=== PATIENT | female | born 1955 | race Caucasian/White ===

== ENCOUNTER 2025-02-17 16:20 | Outpatient (REF) | payer MEDICAID, SELFPAY ==
--- NOTE | ~2025-02-17 | US_ITS ---
CLINICAL HISTORY: right leg swelling, r o dvt Venous duplex ultrasound right lower extremity Comparison: None Findings: The visualized deep veins are fully compressible with normal Doppler color flow and spectral tracings. No popliteal cyst. Right inguinal lymph nodes measuring up to 3.2 x 1 x 2.4 cm in size. IMPRESSION: 1. Negative for right lower extremity deep vein thrombosis. This document has been electronically signed by: Phoebe Wheeler MD on 02/17/2025 18:00:00
--- OUTSIDE RECORDS SUMMARY | 2025-02-17 19:02 | XMS_ITS | Encounter Summary ---
Author Organization [employer] Address 75 [facility] 7t [place] [address] Care Team Providers Care Automobile Club Travel Counselor Name Role Phone Shilpa Carlos MD Primary Care Provider [phone] [phone] Reason for Visit * Reason Onset Date Comments Nurse Triage 02/17/2025 Encounter Details Date Type Department Care Team (Late st Contact Info) Description 02/17/2025 Telephone [facility] [address] [place] [address] Shilpa Carlos MD [address] [place] [address] Nurse Triage Social History Tobacco Use Types Packs/Day Years Used Date Smoking Tobacco: Former Cigarettes Q uit: 1993 Passive Smoke Exposure: Past Smokeless Tobacco: Never Depression Answer Date Recorded Patient Health Questionnaire-9 Score 0 11/16/2022 Depression Answer Date Recorded Patient Health Questionnaire-2 Score 0 11/16/2022 Comments Unknown Sex and Gender Information Value Date Recorded Sex Assigned at Female 09/11/2022 10:21 AM EDT Legal Sex Female 10:21 AM EDT Gender Identity Female 11/16/2022 11:14 AM EST Sexual Orientation Don't know 11/16/2022 11 :14 AM EST documented as of this encounter Miscellaneous Notes * Telephone Encounter - Mallory Chung RN - 02/17/2025 11:18 AM EDT Call returned to Wandy Irene to triage below. Reports having widespread rash x 2 weeks. Per pt having pus filled spots and others are red. No known fever. No MARKO sx. Denies any ST. Pt denies any changes to lotions, soaps or detergents. Pt has used topical hydrocortisone with no relief., may make rash worse. Pt advised of disposition, agrees to seek [facility] as no sick on site with [facility]. Given Uber hea lth to [facility]. Advised of PT1 number to set up for upcoming appt with PCP in a couple of weeks. Will send PT-1 request to [facility]. Protocol Used: Rash or Redness - Widespread (Adult) Protocol-Based Disposition: See in Office or Video Visit Today Video visit offer not recorded Positive Triage Question: * Severe itching * All higher-acuity triage questions were negative Care Advice Discussed: * Reassurance and Education - Widespread Rash * Reasons To Call Back - You become worse * Telephone Encounter - Isabella Tobias - 02/17/2025 11:02 AM EDT Symptom: Skin black coloration, hand skin lumps/pus, Rash all over the body - Caller Reports Outcome: Schedule a same-day appointment or talk to a nurse or provider today Reason: Caller denied all higher acuity questions The caller accepted this outcome. Pt would need an Uber documented in this encounter Plan of Treatment Upcoming Encounters Date Type Department Care Team (Late st Contact Info) Description 02/19/2025 2:00 PM EDT Office Visit [facility] [address] [place] [address] 03/03/2025 3:15 PM EDT Office Visit [facility] MED & PEDS [address] [place] [address] Shilpa Carlos MD [address] [place] [address] documented as of this encounter Visit Diagnoses Not on filedocumented in this encounter Additional Health Concerns Assessment Noted Time PHQ-9 Depression Total Score: 0 11/16/19 23 12:10 PM EST documented as of this encounter Care Teams Automobile Club Travel Counselor Relationship Specialty Start Date End Date Shilpa Carlos MD [address] [place] [phone] PCP - General Internal Medicine 11/12/18 documented as of this encounter
--- OUTSIDE RECORDS SUMMARY | 2025-02-17 19:02 | XMS_ITS | Encounter Summary ---
Author Organization [employer] Address 75 [facility] 7t [place] [address] Care Team Providers Care Custom Miller Name Role Phone Shilpa Carlos MD Primary Care Provider [phone] Reason for Visit * Reason Comments Med Refill Encounter Details Date Type Department Care Team (Late Contact Info) Description 04/18/2024 Refill [facility] MEDICINE [address] [place] [phone] Shilpa Carlos MD [address] [place], [place] [phone] Hypercholesterolemia Social History Tobacco Use Types Packs/Day Years Used Date Smoking Tobacco: Former Cigarettes Q uit: 1992 Passive Smoke Exposure: Past Smokeless Tobacco: Never [...] AM EST documented as of this encounter Plan of Treatment Upcoming Encounters Date Type Department Care Team (Late Contact Info) Description 02/19/2025 2:00 PM EDT Office Visit [facility] [address] [place], [place] [phone] 03/03/2025 3:15 PM EDT Office Visit [facility] MED & PEDS [address] [place], [place] [phone] Shilpa Carlos MD [address] [place] [address] documented as of this encounter Visit Diagnoses Diagnosis Hypercholesterolemia Pure hypercholesterolemia documented in this encounter Additional Health Concerns Assessment Noted Time PHQ-9 Depression Total Score: 0 11/16/19 23 12:10 PM EST documented as of this encounter Care Teams Custom Miller Relationship Specialty Start Date End Date Shilpa Carlos MD [address] [place] [address] PCP - General Internal Medicine 11/12/18 documented as of this encounter
--- OUTSIDE RECORDS SUMMARY | 2025-02-17 19:02 | XMS_ITS | Encounter Summary ---
Author Organization [employer] Address 75 [facility] 7t [place] [address] Care Team Providers Care Risk Management Professional Name Role Phone Shilpa Carlos MD Primary Care Provider [phone] Reason for Visit * Reason Onset Date Comments Med Refill 02/17/2025 Encounter Details Date Type Department Care Team ([facility] st Contact Info) Description 02/17/2025 Refill [facility] MED & PEDS [address] [place] [address] Shilpa Carlos MD [address] [place] [address] Social History Tobacco Use Types Packs/Day Years [...] encounter Miscellaneous Notes * Telephone Encounter - Isabella Tobias - 02/17/2025 11:05 AM EDT TC from pt requesting medication refill. Medications needing refill : empagliflozin (Jardiance) 25 MG metFORMIN XR (Glucophage-XR) 500 MG 24 hr tablet omeprazole (PriLOSEC) [address] capsule To be sent to: [id number] - [place], [place] - [address] Pt informs has no medication left documented in this encounter Plan of Treatment Upcoming Encounters Date Type Department Care Team (Late st Contact Info) Description 02/19/2025 2:00 PM EDT Office Visit [facility] [address] [place], [place] [phone] 03/03/2025 3:15 PM EDT Office Visit [facility] MED & PEDS [address] [place], [place] [phone] Shilpa Carlos MD [address] [place], [place] [phone] documented as of this encounter Visit Diagnoses Not on filedocumented in this encounter Additional Health Concerns Assessment Noted Time PHQ-9 Depression Total Score: 0 11/16/19 23 12:10 PM EST documented as of this encounter Care Teams Risk Management Professional Relationship Specialty Start Date End Date Shilpa Carlos MD [address] [place], [place] [phone] PCP - General Internal Medicine 11/12/18 documented as of this encounter
--- OUTSIDE RECORDS SUMMARY | 2025-02-17 19:02 | XMS_ITS | Encounter Summary ---
Author Organization [employer] Address 75 [facility] 7t [place] [address] Care Team Providers Care Motorized Squad Captain Name Role Phone Shilpa Carlos MD Primary Care Provider [phone] Reason for Visit * Reason Onset Date Comments Med Refill 10/23/2024 Encounter Details Date Type Department Care Team ([facility] st Contact Info) Description 10/23/2024 Telephone [facility] [address] [place] [address] Shilpa Carlos MD [address] [place] [phone] Med Refill Social History Tobacco Use Types Packs/Day Years [...] encounter Miscellaneous Notes * Telephone Encounter - Janie Colon - 10/23/2024 3:09 PM EST TC from pt requesting medication refill. Medications needing refill : omeprazole (PriLOSEC) [address] capsule metFORMIN XR (Glucophage-XR) 500 MG 24 hr tablet To be sent to: [id number] documented in this encounter Plan of Treatment Upcoming Encounters Date Type Department Care Team (Late st Contact Info) Description 02/19/2025 2:00 PM EDT Office Visit [facility] [address] [place] [address] 03/03/2025 3:15 PM EDT Office Visit [facility] PEDS [address] [place] [address] Shilpa Carlos MD [address] [place] [address] documented as of this encounter Visit Diagnoses Not on filedocumented in this encounter Additional Health Concerns Assessment Noted Time PHQ-9 Depression Total Score: 0 11/16/19 23 12:10 PM EST documented as of this encounter Care Teams Motorized Squad Captain Relationship Specialty Start Date End Date Shilpa Carlos MD [address] [place] [address] PCP - General Internal Medicine 11/12/18 documented as of this encounter
--- OUTSIDE RECORDS SUMMARY | 2025-02-17 19:02 | XMS_ITS | Encounter Summary ---
Author Organization [employer] Address 75 [facility] 7t [place] [address] Care Team Providers Care Bun Icer Name Role Phone Shilpa Carlos MD Primary Care Provider [phone] Reason for Referral * Consultation (Routine) - Authorized Specialty Diagnoses / Procedures Referred By Beth rashid Referred To Contact Family Medicine Diagnoses Rash Danika Valerio MD [address] [place] [address] Phone: tel: fax: Referral ID Status Reason Start Date Expiration Date Visits Requested Visits Authorized [id number] Authorized Specialty Services Required 02/17/2025 02/17/2026 1 1 * Imaging (STAT) - Authorized Specialty Diagnoses / Procedures Referred By Beth rashid Referred To Contact Cardiology Diagnoses Right leg swelling Procedures Vascular US lower extremity venous duplex right Danika Valerio MD [address] [place] [address] Phone: tel: fax: [address] Phone: tel: fax: Referral ID Status Reason Start Date Expiration Date Visits Requested Visits Authorized [id number] Authorized Perform Procedure 02/17/2025 02/17/2026 1 1 Reason for Visit * Reason Comments Rash Encounter Details Date Type Department Care Team (Late st Contact Info) Description 02/17/2025 3:20 PM EDT Office Visit [facility] [address] [place] [address] Danika Valerio MD [address] [place], [place] [phone] Rash (Primary Dx); Right leg swelling; Benign essential hypertension; Type 2 diabetes mellitus with hyperglycemia, without long-term current use of insulin ([facility]); Gastroesophageal reflux disease, unspecified whether esophagitis present Social History Tobacco Use Types Packs/Day Years [...] AM EST documented as of this encounter Last Filed Vital Signs Vital Sign Reading Time Taken Comments Blood Pressure 147/80 02/17/2025 2:39 PM EDT Pulse 78 02/17/2025 2:39 PM EDT Temperature 36.7 ??C (98.1 ??F) 02/17/2025 2:39 PM ED T Respiratory Rate 18 02/17/2025 2:39 PM EDT Oxygen Saturation 98% 02/17/2025 2:39 PM EDT Inhaled Oxygen Concentration - - Weight 91.6 kg (202 lb) 02/17/2025 2:39 PM EDT Height - - Body Mass Index 30.71 01/15/2023 1:47 PM EST documented in this encounter Progress Notes * Augusto Nichols - 02/17/2025 3:20 PM EDT Images from the original note were not included. Subjective Patient ID: Wandy Irene is a 69 y.o. female with past medical history of hypertension, GERD and type 2 diabetes who presents to walk in clinic for Rash. Pt has not been seen at clinic since 2022. Per triage: Reports having widespread rash x 2 weeks. Per pt having pus filled spots and others arered. No known fever. No MARKO sx. Denies any ST. Pt denies any changes to lotions, soaps or detergents. Pt has used topical hydrocortisone with no relief., may make rash worse. Pt reports 2 or 3 weeks of this rash that is seemingly concentrated to her hands, but has some other minimal spots of redness all over her body. Denies any new medications. She reports burning and tingling sensations. Pt notes that occasionally when she touches the crusting there is some purulent discharge. She reports swelling to her right leg for many months. Denies any evaluation for the swelling or interventions to evaluate for blood clots. Pt reports she needs to get her medications refilled and has been out of some of them. She notes she has had difficulty getting back in to care. Review of Systems Constitutional: Negative for fever and unexpected weight change. Respiratory: Negative for shortness of breath. Cardiovascular: Negative for chest pain. Gastrointestinal: Negative for abdominal pain. Genitourinary: Negative for difficulty urinating. Skin: Positive for color change and rash. Objective Visit Vitals BP (!) 147/80 (BP Location: Left arm, Patient Position: Sitting, BP Cuff Size: Adult) Pulse 78 Temp 98.1 ??F (36.7 ??C) (Temporal) Resp 18 Body mass index is 30.71 kg/m??. Physical Exam Constitutional: Appearance: Normal appearance. Cardiovascular: Rate and Rhythm: Normal rate and regular rhythm. Heart sounds: Normal heart sounds. Pulmonary: Effort: Pulmonary effort is normal. Breath sounds: Normal breath sounds. Musculoskeletal: Cervical back: Normal range of motion. Right lower leg: Swelling (erythematous, warmth) present. Left lower leg: Normal. Comments: See image. Skin: General: Skin is warm. Findings: Rash and wound present. Comments: Bilateral hands with skin breakdown, erythema, and yellowish crusting. See image. Neurological: General: No focal deficit present. Mental Status: She is alert. Psychiatric: Behavior: Behavior normal. Problem List Items Addressed This Visit Rash - Primary Bilateral hands with skin breakdown, erythema, and yellowish crusting. See image. Occasional purulent discharge. -prescribed doxycycline (Vibramycin) 100 MG -prescribed mineral oil-hydrophilic petrolatum (Aquaphor) ointment -prescribed predniSONE (Deltasone) 20 MG taper -referred to Dermatology -follow-up on with Danika Valerio Relevant Medications doxycycline (Vibramycin) 100 MG capsule Other Relevant Orders Referral to [facility] Derm Skin Adult Right leg swelling Localized swelling, redness and warmth to right lower leg x months. -ordered STAT R doppler US -follow-up on with Danika Valerio Relevant Orders Vascular US lower extremity venous duplex right Benign essential hypertension BP slightly elevated, likely due to medication non-adherence. -refilled carvedilol (Coreg) 3.125 MG and lisinopril 10 MG Relevant Medications carvedilol (Coreg) 3.125 MG tablet lisinopril 10 MG tablet Type 2 diabetes mellitus with hyperglycemia, without long-term current use of insulin ([facility]) Not been seen in the clinic since 2022. -refilled empagliflozin (Jardiance) 25 MG and metFORMIN XR (Glucophage-XR) 500 MG 24 hr Relevant Medications predniSONE (Deltasone) 20 MG tablet mineral oil-hydrophilic petrolatum (Aquaphor) ointment empagliflozin (Jardiance) 25 MG metFORMIN XR (Glucophage-XR) 500 MG 24 hr tablet GERD (gastroesophageal reflux disease) -refilled omeprazole (PriLOSEC) [address] Relevant Medications omeprazole (PriLOSEC) [address] capsule -No evidence of acute disease process. Suspect cellulitis, versus diabetic blisters, fungal infection, ulcers. Also suspect possible LLE DVT. Symptoms moderate. -Will treat with steroids, hydrating ointment, abx and ordered STAT US. -ER precautions discussed. -Seek medical attention for worsening symptoms. 02/17/25 6:22 PM IMPRESSION: 1. Negative for right lower extremity deep vein thrombosis. I, Augusto Nichols, am serving as a scribe to document services personally performed by Dr. Avila, based on the patient's response to questions by provider and providers statements to me. documented in this encounter Miscellaneous Notes * Assessment & Plan Note - Augusto Nichols - 02/17/2025 3:04 PM EDTAssociated Problem(s): Type 2 diabetes mellitus with hyperglycemia, without long-term current use of insulin ([facility]) Not been seen in the clinic since 2022. -refilled empagliflozin (Jardiance) 25 MG and metFORMIN XR (Glucophage-XR) 500 MG 24 hr * Assessment & Plan Note - Augusto Nichols - 02/17/2025 3:03 PM EDTAssociated Problem(s): GERD (gastroesophageal reflux disease) -refilled omeprazole (PriLOSEC) [address] * Assessment & Plan Note - Augusto Nichols - 02/17/2025 3:02 PM EDTAssociated Problem(s): Benign essential hypertension BP slightly elevated, likely due to medication non-adherence. -refilled carvedilol (Coreg) 3.125 MG and lisinopril 10 MG * Assessment & Plan Note - Augusto Nichols - 02/17/2025 2:58 PM EDTAssociated Problem(s): Right leg swelling Localized swelling, redness and warmth to right lower leg x months. -ordered STAT R doppler US -follow-up on with Danika Valerio * Assessment & Plan Note - Augusto Nichols - 02/17/2025 2:56 PM EDTAssociated Problem(s): Rash Bilateral hands with skin breakdown, erythema, and yellowish crusting. See image. Occasional purulent discharge. -prescribed doxycycline (Vibramycin) 100 MG -prescribed mineral oil-hydrophilic petrolatum (Aquaphor) ointment -prescribed predniSONE (Deltasone) 20 MG taper -referred to Dermatology -follow-up on with Danika Teodoro documented in this encounter Plan of Treatment Upcoming Encounters Date Type Department Care Team (Late st Contact Info) Description 02/19/2025 2:00 PM EDT Office Visit [facility] [address] [place] [address] 03/03/2025 3:15 PM EDT Office Visit [facility] [address] [place] [address] Shilpa Carlos MD [address] [place] [address] Scheduled Referrals Name Type Priority Associated Diagnoses Orde r Schedule Referral to [facility] Derm Skin Adult Outpatient Referral Routine Rash Expected: 02/17/2025 (Approximate), Expires: 02/17/2026 documented as of this encounter Visit Diagnoses Diagnosis Rash- Primary Rash and other nonspecific skin eruption Right leg swelling Benign essential hypertension Essential hypertension, benign Type 2 diabetes mellitus with hyperglycemia, without long-term current use of insulin ([facility]) Gastroesophageal reflux disease, unspecified whether esophagitis present documented in this encounter Additional Health Concerns Assessment Noted Time PHQ-9 Depression Total Score: 0 11/16/19 23 12:10 PM EST documented as of this encounter Care Teams Bun Icer Relationship Specialty Start Date End Date Shilpa Carlos MD [address] [place] [address] PCP - General Internal Medicine 11/12/18 documented as of this encounter
--- OUTSIDE RECORDS SUMMARY | 2025-02-17 19:02 | XMS_ITS | Encounter Summary ---
Author Organization [employer] Address 75 [facility] 7t [place] [address] Care Team Providers Care Spinneret Person Name Role Phone Shilpa Carlos MD Primary Care Provider [phone] Reason for Visit * Reason Comments Med Refill Encounter Details Date Type Department Care Team (Late Contact Info) Description 02/07/2025 Refill [facility] & PEDS [address] [place], [place] [phone] Lucho Veiira MD [address] [place] [address] Social History Tobacco Use Types Packs/Day Years [...] Description 02/19/2025 2:00 PM EDT Office Visit [facility] [address] [place] [phone] 03/03/2025 3:15 PM EDT Office Visit [facility] [address] [place] [address] Shilpa Carlos MD [address] [place] [address] documented as of this encounter Visit Diagnoses Not on filedocumented in this encounter Additional Health Concerns Assessment Noted Time PHQ-9 Depression Total Score: 0 11/16/19 23 12:10 PM EST documented as of this encounter Care Teams Spinneret Person Relationship Specialty Start Date End Date Shilpa Carlos MD [address] [place] [address] PCP - General Internal Medicine 11/12/18 documented as of this encounter
--- OUTSIDE RECORDS SUMMARY | 2025-02-17 19:02 | XMS_ITS | Encounter Summary ---
Author Organization [employer] Address 75 [facility] 7t [place] [address] Care Team Providers Care Digital Solution Architect Name Role Phone Shilpa Carlos MD Primary Care Provider [phone] Encounter Details Date Type Department Care Team (Late st Contact Info) Description 02/17/2025 Orders Only [facility] MEDICINE [address] [place] [phone] Danika Valerio MD [address] [place] [phone] Social History Tobacco Use Types Packs/Day Years [...] Description 02/19/2025 2:00 PM EDT Office Visit [facility] [address] [place], [place] [phone] 03/03/2025 3:15 PM EDT Office Visit [facility] PEDS [address] [place], [place] [phone] Shilpa Carlos MD [address] [place] [address] documented as of this encounter Procedures Procedure Name Priority Date/Time Associated Diagnosis Comments US VENOUS DUPLEX LE RT Routine 02/17/2025 6:00 PM EDT documented in this encounter Results * US VENOUS DUPLEX LE RT (02/17/2025 6:00 PM EDT) Anatomical Region Laterality Modality Abdomen Ultrasound 02/17/2025 6:00 PM EDT Narrative 02/17/2025 6:01 PM EDT ? [facility] ?[address] ?[place] [address] ? Ultrasound Report ? Signed ? Patient: TetoWandy R ?MR#: [id number] ?? [id number] ? : 1955 ?Acct:[id number] ? Age/Sex: 69 / F ?ADM Date: 02/17/25 ? Loc: HO.US ? Attending Dr: Danika Valerio MD ? Ordering Physician: Danika Valerio MD ?? Date of Service: 02/17/25 ?? Procedure(s): US venous duplex LE RT ?? Accession Number(s): [id number] ? cc: Shilpa Carlos MD; Danika Valerio MD ? CLINICAL HISTORY: right leg swelling, r o dvt ? Venous duplex ultrasound right lower extremity ? Comparison: None ? Findings: ?? The visualized deep veins are fully compressible with normal Doppler color ?? flow and spectral tracings. ?? No popliteal cyst. ?? Right inguinal lymph nodes measuring up to 3.2 x 1 x 2.4 cm in size. ? IMPRESSION: ?? 1. Negative for right lower extremity deep vein thrombosis. ? This document has been electronically signed by: Phoebe Wheeler MD on ?? 02/17/2025 18:00:00 ? Dictated By: ?Phoebe Wheeler MD ? Signed By: ?<Electronically signed by Phoebe Wheeler MD in OV> ? 02/17/25 1801 ? DD/ 1800 ? TD/TT: 02/17/25 1800 ? Grid Inspector: ? Procedure Note Justin, Carlos - 02/17/[address] [place] [address] Ultrasound Report Signed Patient: Wandy Irene RMR#: [id number] : 5Acct:[id number] Age/Sex: 69 / FADM Date: 02/17/25 Loc: HO.US Attending Dr: Danika Valerio MD Ordering Physician: Danika Valerio MD Date of Service: 02/17/25 Procedure(s): US venous duplex LE RT Accession Number(s): [id number] cc: Shilpa Carlos MD; Danika Valerio MD CLINICAL HISTORY: right leg swelling, r o dvt Venous duplex ultrasound right lower extremity Comparison: None Findings: The visualized deep veins are fully compressible with normal Doppler color flow and spectral tracings. No popliteal cyst. Right inguinal lymph nodes measuring up to 3.2 x 1 x 2.4 cm in size. IMPRESSION: 1. Negative for right lower extremity deep vein thrombosis. This document has been electronically signed by: Phoebe Wheeler MD on 02/17/2025 18:00:00 Dictated By: Phoebe Wheeler MD Signed By: <Electronically signed by Phoebe Wheeler MD in OV> 02/17/25 1801 DD/ 1800 TD/TT: 02/17/25 1800 Grid Inspector: us Danika Valerio MD IMG US PROCEDURES Final Re sult documented in this encounter Visit Diagnoses Not on filedocumented in this encounter Additional Health Concerns Assessment Noted Time PHQ-9 Depression Total Score: 0 11/16/19 23 12:10 PM EST documented as of this encounter Care Teams Digital Solution Architect Relationship Specialty Start Date End Date Shilpa Carlos MD [address] [place] [phone] PCP - General Internal Medicine 11/12/18 documented as of this encounter
--- OUTSIDE RECORDS SUMMARY | 2025-02-17 19:02 | XMS_ITS | Encounter Summary ---
Author Organization [employer] Address [address] [facility] 7t [place] [address] Care Team Providers Care Wafer Fabrication Operator Name Role Phone Shilpa Carlos MD Primary Care Provider [phone] Reason for Visit * Reason Comments Care Coordination CHW outreach for SDO H PT-1 - LVM Encounter Details Date Type Department Care Team (Latest Contact Info) Description 02/17/2025 Patient Outreach [facility] [address] [place] [address] Shilpa Carlos MD [address] [place] [phone] Care Coordination (CHW outreach for SDOH PT-1 - LVM ) Social History Tobacco Use Types Packs/Day Years [...] AM EST documented as of this encounter Progress Notes * Sharif Mckeon - 02/17/2025 12:00 PM EDT CHW Sahrif Mckeon, placed outbound call to patient for assistance with SDOH as a referral was placed by the provider. Patient had screened positive for the following SDOH insecurities. No answer atthis time. Patient's name and were not confirmed. CHW left detailed message and provided contact information requesting return call for assistance. Patient educated on extended clinic hours on Mondays through Wednesdays, and Walk-In Urgent Care Located in [facility]. Patient provided with after-hours line for [facility], , which offer night time triage service and option to transfer toon call provider if needed. documented in this encounter Plan of Treatment Upcoming Encounters Date Type Department Care Team ([facility] st Contact Info) Description 02/19/2025 2:00 PM EDT Office Visit [facility] [address] [place] [address] 03/03/2025 3:15 PM EDT Office Visit [facility] & PEDS [address] [place] [address] Shilpa Carlos MD [address] [place] [address] documented as of this encounter Visit Diagnoses Not on filedocumented in this encounter Additional Health Concerns Assessment Noted Time PHQ-9 Depression Total Score: 0 11/16/19 23 12:10 PM EST documented as of this encounter Care Teams Wafer Fabrication Operator Relationship Specialty Start Date End Date Shilpa Carlos MD [address] [place] [address] PCP - General Internal Medicine 11/12/18 documented as of this encounter
--- OUTSIDE RECORDS SUMMARY | 2025-02-17 19:02 | XMS_ITS | Encounter Summary ---
Author Organization [employer] Address [address] [facility] 7t [place] [address] Care Team Providers Care Telecommunicator Name Role Phone Shilpa Carlos MD Primary Care Provider [phone] Reason for Visit * Reason Comments Med Refill Encounter Details Date Type Department Care Team (Late Contact Info) Description 01/20/2025 Refill [facility] & PEDS [address] [place], [place] [phone] Lucho Vieira MD [address] [place] [address] Social History Tobacco Use Types Packs/Day Years [...] 2:00 PM EDT Office Visit [facility] [address] [place] [address] [phone] 03/03/2025 3:15 PM EDT Office Visit [facility] [address] [place] [address] Shilpa Carlos MD [address] [place] [address] documented as of this encounter Visit Diagnoses Not on filedocumented in this encounter Additional Health Concerns Assessment Noted Time PHQ-9 Depression Total Score: 0 11/16/19 23 12:10 PM EST documented as of this encounter Care Teams Telecommunicator Relationship Specialty Start Date End Date Shilpa Carlos MD [address] [place] [address] PCP - General Internal Medicine 11/12/18 documented as of this encounter
--- OUTSIDE RECORDS SUMMARY | 2025-02-17 19:02 | XMS_ITS | Encounter Summary ---
Author Organization [employer] Address 75 [facility] 7t [place] [address] Care Team Providers Care Customer Program Manager Name Role Phone Shilpa Carlos MD Primary Care Provider [phone] Reason for Visit * Reason Onset Date Comments PT-1 02/17/2025 Encounter Details Date Type Department Care Team ([facility] Contact Info) Description 02/17/2025 Telephone [facility] [address] [place], [place] [phone] Shilpa Carlos MD [address] [place] [address] PT-1 Social History Tobacco Use Types Packs/Day Years [...] Encounter - Mallory Chung RN - 02/17/2025 11:33 AM EDT Patient calling requesting PT1 Home Address verified: Y/N: Yes Provider name or facility name: Shilpa Carlos MD [facility] Facility Address: [address] [facility] [address] Escort needed: Y/N: No Do you have a wheelchair: Y/N: No ?? If yes- Manual or electric: N/A Visits: 2 x monthly documented in this encounter Plan of Treatment Upcoming Encounters Date Type Department Care Team ([facility] Contact Info) Description 02/19/2025 2:00 PM EDT Office Visit [facility] [address] [place] [address] 03/03/2025 3:15 PM EDT Office Visit [facility] [address] [place] [address] Shilpa Carlos MD [address] [place] [address] documented as of this encounter Visit Diagnoses Not on filedocumented in this encounter Additional Health Concerns Assessment Noted Time PHQ-9 Depression Total Score: 0 11/16/19 23 12:10 PM EST documented as of this encounter Care Teams Customer Program Manager Relationship Specialty Start Date End Date Shilpa Carlos MD [address] [place] [address] PCP - General Internal Medicine 11/12/18 documented as of this encounter
--- OUTSIDE RECORDS SUMMARY | 2025-02-17 19:02 | XMS_ITS | Clinical Summary ---
Author Organization [employer] Address 75 [facility] 7t [place] [address] Care Team Providers Care Kier Hand Name Role Phone Shilpa Carlos MD Primary Care Provider [phone] Allergies Active Allergy Reactions Criticality Noted Date Comments Penicillins 06/18/2012 Medications Blood Glucose Monitoring Suppl (FreeStyle glucose monitoring) kitIndications: Diabetes mellitus type 2 in obese To use 2 times a day 1 each 11/16/19 23 Active empagliflozin (Jardiance) 10 MGIndications:D iabetes mellitus type 2 in obese Take 1 tablet (10 mg) by mouth in the morning. 30 tablet 11 11/16/19 23 Active triamcinolone (Kenalog) 0.1 % creamIndication s:Infestation by bed bug Apply topically if needed in the morning and at bedtime (pain and swelling). 80 g 11 11/16/19 23 Active glucose blood (FreeStyle [employer] Test) test stripIndication s:Diabetes mellitus type 2 in obese 100 each by Other route 2 times daily. Use as instructed 100 each 12 02/07/20 23 Active traZODone (Desyrel) 50 MG tabletIndicatio ns:Primary insomnia TAKE 1 TABLET BY MOUTH AT BEDTIME 30 tablet 2 12/24/19 24 Active simvastatin (Zocor) 20 MG tabletIndicatio ns:Hypercholest erolemia TAKE 1 TABLET BY MOUTH ONCE DAILY AT BEDTIME 90 tablet 3 02/12/20 24 Active predniSONE (Deltasone) 20 MG tabletIndicatio ns:Type 2 diabetes mellitus with hyperglycemia, without long-term current use of insulin (CMS/HCC) Take 1 tablet (20 mg) by mouth 3 times daily for 3 days, THEN 1 tablet (20 mg) 2 times daily for 3 days, THEN 1 tablet (20 mg) Once per day for 3 days. 18 tablet 02/18/20 25 025 Active mineral oil-hydrophilic petrolatum (Aquaphor) ointmentIndicat ions:Type 2 diabetes mellitus with hyperglycemia, without long-term current use of insulin (CMS/HCC) Apply topically if needed for dry skin. 396 g 2 02/18/20 25 026 Active carvedilol (Coreg) 3.125 MG tabletIndicatio ns:Benign essential hypertension Take 1 tablet (3.125 mg) by mouth with breakfast and with evening meal. 180 tablet 3 02/18/20 25 025 Active lisinopril 10 MG tabletIndicatio ns:Benign essential hypertension Take 1 tablet (10 mg) by mouth Once per day. 90 tablet 3 02/18/20 25 Active empagliflozin (Jardiance) 25 MGIndications:T ype 2 diabetes mellitus with hyperglycemia, without long-term current use of insulin (CMS/HCC) TAKE 1 TABLET BY MOUTH EVERY MORNING 90 tablet 02/18/20 25 Active metFORMIN XR (Glucophage-XR) 500 MG 24 hr tabletIndicatio ns:Type 2 diabetes mellitus with hyperglycemia, without long-term current use of insulin (CMS/HCC) Take 1 tablet (500 mg) by mouth with evening meal. Do not crush, chew, or split. 90 tablet 3 02/18/20 25 Active doxycycline (Vibramycin) 100 MG capsuleIndicati ons:Rash Take 1 capsule (100 mg) by mouth 2 times daily for 10 days. Take with at least 8 ounces (large glass) of water, do not lie down for 30 minutes after 20 capsule 02/18/20 25 025 Active omeprazole (PriLOSEC) [address] capsuleIndicati ons:Gastroesoph ageal reflux disease, unspecified whether esophagitis present TAKE 1 CAPSULE(40 MG) BY MOUTH EVERY DAY BEFORE A MEAL 90 capsule 02/18/20 25 Active metFORMIN XR (Glucophage-XR) 500 MG 24 hr tablet TAKE 1 TABLET BY MOUTH EVERY DAY WITH THE EVENING MEAL 90 tablet 10/23/20 24 025 Discontinued(R eorder (will not trigger notification to Pharmacy)) omeprazole (PriLOSEC) [address] capsule TAKE 1 CAPSULE(40 MG) BY MOUTH EVERY DAY BEFORE A MEAL 90 capsule 10/23/20 24 025 Discontinued(R eorder (will not trigger notification to Pharmacy)) carvedilol (Coreg) 3.125 MG tablet TAKE 1 TABLET BY MOUTH TWICE DAILY WITH FOOD 180 tablet 1 10/30/20 24 025 Discontinued empagliflozin (Jardiance) 25 MG TAKE 1 TABLET BY MOUTH EVERY MORNING 90 tablet 12/04/19 25 025 Discontinued(R eorder (will not trigger notification to Pharmacy)) lisinopril 10 MG tabletIndicatio ns:Benign essential hypertension TAKE 1 TABLET(10 MG) BY MOUTH IN THE MORNING 90 tablet 12/04/19 25 025 Discontinued(R eorder (will not trigger notification to Pharmacy)) carvedilol (Coreg) 3.125 MG tabletIndicatio ns:Benign essential hypertension TAKE 1 TABLET BY MOUTH TWICE DAILY WITH FOOD 180 tablet 1 02/07/20 025 Discontinued(R eorder (will not trigger notification to Pharmacy)) Active Problems Problem Noted Date Diagnosed Date Type 2 diabetes mellitus wit h hyperglycemia, without long-term current use of insulin 02/17/2025 Assessment & Plan (02/17/2025 3:04 PM EDT): Not been seen in the clinic since 2022. -refilled empagliflozin (Jardiance) 25 MG and metFORMIN XR (Glucophage-XR) 500 MG 24 hr Rash 02/17/2025 Assessment & Plan (02/17/2025 2:57 PM EDT): Bilateral hands with skin breakdown, erythema, and yellowish crusting. See image. Occasional purulent discharge. -prescribed doxycycline (Vibramycin) 100 MG -prescribed mineral oil-hydrophilic petrolatum (Aquaphor) ointment -prescribed predniSONE (Deltasone) 20 MG taper -referred to Dermatology -follow-up on with Danika Valerio Right leg swelling 02/17/2025 Assessment & Plan (02/17/2025 2:58 PM EDT): Localized swelling, redness and warmth to right lower leg x months. -ordered STAT R doppler US -follow-up on with Danika Valerio GERD (gastroesophageal reflux disease) Assessment & Plan (02/17/2025 3:03 PM EDT): -refilled omeprazole (PriLOSEC) [address] Benign essential hypertension 08/21/2014 Assessment & Plan (02/17/2025 3:03 PM EDT): BP slightly elevated, likely due to medication non-adherence. -refilled carvedilol (Coreg) 3.125 MG and lisinopril 10 MG Diabetes mellitus type 2 in obese 07/21/2014 Obesity 11/07/2012 Encounters Date Type Department Care Team Description 02/17/2025 3:20 PM EDT Office Visit [facility] [address] [place] [phone] Danika Valerio MD Rash (Primary Dx); Right leg swelling; Benign essential hypertension; Type 2 diabetes mellitus with hyperglycemia, without long-term current use of insulin ([facility]); Gastroesophageal reflux disease, unspecified whether esophagitis present 02/17/2025 Orders Only [facility] [address] [place] [phone] Danika Valerio MD 02/17/2025 Patient Outreach [facility] [address] [place] [phone] Shilpa Carlos MD Care Coordination (CHW outreach for SDOH PT-1 - LVM ) 02/17/2025 Telephone [facility] [address] [place] [address] Shilpa Carlos MD PT-1 02/17/2025 Refill [facility] [address] [place] [address] Shilpa Carlos MD 02/17/2025 Telephone [facility] [address] [place] [address] Shilpa Carlos MD Nurse Triage 02/07/2025 Refill [facility] [address] [place] [address] Lucho Vieira MD 02/06/2025 Refill [facility] [address] [place] [address] Shilpa Carlos MD Benign essential hypertension 01/23/2025 Telephone [facility] [address] [place] [address] Shilpa Carlos MD Appointment Request 01/22/2025 Telephone [facility] [address] [place] [address] Shilpa Carlos MD Appointment Request 01/22/2025 Refill [facility] [address] [place] [address] Lucho Vieira MD 01/20/2025 Refill [facility] [address] [place] [address] Lucho Vieira MD 12/04/2024 Refill [facility] [address] [place] [address] Shilpa Carlos MD Benign essential hypertension from Last 3 Months Social History Tobacco Use Types Packs/Day Years Used Date Smoking Tobacco: Former Cigarettes Q uit: 1992 Passive Smoke Exposure: Past Smokeless Tobacco: Never Tobacco Cessation:Counseling Given: Not Answered Depression Answer Date Recorded Patient Health Questionnaire-9 Score 0 11/16/2022 Depression Answer Date Recorded Patient Health Questionnaire-2 Score 0 11/16/2022 Comments Unknown Sex and Gender Information Value Date Recorded Sex Assigned at Female 09/11/2022 10:21 AM EDT Legal Sex Female 10:21 AM EDT Gender Identity Female 11/16/2022 11:14 AM EST Sexual Orientation Don't know 11/16/2022 11 :14 AM EST Last Filed Vital Signs Vital Sign Reading Time Taken Comments Blood Pressure 147/80 02/17/2025 2:39 PM EDT Pulse 78 02/17/2025 2:39 PM EDT Temperature 36.7 ??C (98.1 ??F) 02/17/2025 2:39 PM ED T Respiratory Rate 18 02/17/2025 2:39 PM EDT Oxygen Saturation 98% 02/17/2025 2:39 PM EDT Inhaled Oxygen Concentration - - Weight 91.6 kg (202 lb) 02/17/2025 2:39 PM EDT Height 172.7 cm (5' 8 ) 01/15/2023 1:47 PM EST Body Mass Index 30.71 01/15/2023 1:47 PM EST Plan of Treatment Upcoming Encounters Date Type Department Care Team (Late st Contact Info) Description 02/19/2025 2:00 PM EDT Office Visit [facility] [address] [place] [address] 03/03/2025 3:15 PM EDT Office Visit [facility] [address] [place] [address] Shilpa Carlos MD [address] [place] [address] Health Maintenance Due Date Last Done Comments CT Colonography 1955 Colonoscopy 1955 Colorectal Cancer Screening 1955 FIT DNA/Cologuard 1955 FIT 1955 FOBT 1955 Lipid Panel 1955 SDOH Screening 1955 Sigmoidoscopy 1955 Diabetes: Foot Exam 1965 Eye Exam 1965 Alcohol/Substance Use Screening 1967 Hepatitis C Screening 1973 Diabetes: Urine Protein Screening 1974 Mammogram 1995 Zoster Vaccines (1 of 2) 2005 Pneumococcal Vaccine: 50+ Years (2 of 2 - PCV) 09/19/2017 09/19/2016 Diabetes: Hemoglobin A1C 04/20/2023 01/18/2023, 03/0 04/2023 Depression Screening 11/16/2023 11/16/2022, 11/16/19 23 Tobacco Screening 01/16/2024 01/15/2023 COVID-19 Vaccine ( season) 2024 09/15/2023, 09/09/2022, 12/15/2021, Additional history exists Influenza Vaccine (#1) 2024 3, 08/26/2022, 08/24/2019, Additional history exists DTaP/Tdap/Td Vaccines (2 - Td or Tdap) 02/02/2026 02/03/2016 RSV Patients and Patients Aged 60 years or older (1 - 1-dose 75+ series) 2030 HIB Vaccines Aged Out No longer eligi ble based on patient's age to complete this topic HPV Vaccines Aged Out No longer eligi ble based on patient's age to complete this topic Hepatitis A Vaccines Aged Out No long er eligible based on patient's age to complete this topic Hepatitis B Vaccines Aged Out No long er eligible based on patient's age to complete this topic IPV Vaccines Aged Out No longer eligi ble based on patient's age to complete this topic Meningococcal Vaccine Aged Out No marcus pablito eligible based on patient's age to complete this topic RSV under 20 months Aged Out No longe r eligible based on patient's age to complete this topic Rotavirus Vaccines Aged Out No longer eligible based on patient's age to complete this topic Procedures Procedure Name Priority Date/Time Associated Diagnosis Comments US VENOUS DUPLEX LE RT Routine 02/17/2025 6:00 PM EDT HEMOGLOBIN A1C Routine 01/18/2023 9:52 AM EST Diabetes mellitus type 2 in obese (CMS/HCC) from Last 3 Months or Most Recently Relevant to Health Maintenance Results * US VENOUS DUPLEX LE RT (02/17/2025 6:00 PM EDT) Anatomical Region Laterality Modality Abdomen Ultrasound 02/17/2025 6:00 PM EDT Narrative 02/17/2025 6:01 PM EDT ? [facility] ?[address] ?[place] [address] ? Ultrasound Report ? Signed ? Patient: Irene,Wandy R ?MR#: [id number] ?? [id number] ? : 1955 ?Acct:[id number] ? Age/Sex: 69 / F ?ADM Date: 04/08/25 ? Loc: HO.US ? Attending Dr: Danika Valerio MD ? Ordering Physician: Danika Valerio MD ?? Date of Service: 02/17/25 ?? Procedure(s): US venous duplex LE RT ?? Accession Number(s): [id number] ? cc: Shilpa Carlos MD; Danika Valerio [...] DD/ 1800 ? TD/TT: 02/17/25 1800 ? Industrial Order Clerk: ? Procedure Note Carlos Anderson - 02/17/2025 [place] [address] Ultrasound Report Signed Patient: Wandy Irene RMR#: [id number] : 5Acct:[id number] Age/Sex: 69 / FADM Date: 02/17/25 Loc: HO.US Attending Dr: Danika Valerio MD Ordering Physician: Danika Valerio MD Date of Service: 02/17/25 Procedure(s): US venous duplex LE RT Accession Number(s): [id number] cc: Shilpa Carlos MD; Danika Valerio MD [...] 02/17/25 1801 DD/ 1800 TD/TT: 02/17/25 1800 Industrial Order Clerk: Danika Valerio MD [facility] US PROCEDURES Final Re sult * (ABNORMAL) Hemoglobin A1c (01/18/2023 9:52 AM EST) Hemoglobin A1c 8.4(H) <5.7 % of total Hgb [facility] Comment: For someone without known diabetes, a hemoglobin A1c value of 6.5% or greater indicates that they may have diabetes and this should be confirmed with a follow-up test. For someone with known diabetes, a value <7% indicates that their diabetes is well controlled and a value greater than or equal to 7% indicates suboptimal control. A1c targets should be individualized based on duration of diabetes, age, comorbid conditions, and other considerations. Currently, no consensus exists regarding use of hemoglobin A1c for diagnosis of diabetes for children. ?? Blood Venous blood specimen / Unknown 01/18/2023 9:52 AM EST 01/18/2023 9:53 AM EST Shilpa Carlos MD LAB BLOOD ORDERABLES Final Result [facility] [address], [place] [address] [employer] [place] [employer] [address] [facility], ([address]) [place] [address] from Last 3 Months or Most Recently Relevant to Health Maintenance Insurance [facility] Care Teams Kier Hand Relationship Specialty Start Date End Date Shilpa Carlos MD [address] [place] [phone] PCP - General Internal Medicine 11/12/18
--- OUTSIDE RECORDS SUMMARY | 2025-02-17 19:02 | XMS_ITS | Encounter Summary ---
Author Organization [employer] Address 75 [facility] 7t [place] [address] Care Team Providers Care Certified Ethical Hacker Name Role Phone Shilpa Carlos MD Primary Care Provider [phone] Reason for Visit * Reason Onset Date Comments Appointment Request 01/22/2025 Encounter Details Date Type Department Care Team ([facility] st Contact Info) Description 01/22/2025 Telephone [facility] [address] [place] [address] Shilpa Carlos MD [address] [place] [phone] Appointment Request Social History Tobacco Use Types Packs/Day Years [...] Miscellaneous Notes * Telephone Encounter - Janie Toro - 01/22/2025 11:23 AM EDT Tc from pt requesting Office Visit due to needing medications , pt last seen 01/15/2023 documented in this encounter Plan of Treatment Upcoming Encounters Date Type Department Care Team (Late st Contact Info) Description 02/19/2025 2:00 PM EDT Office Visit [facility] [address] [place], [place] [phone] 03/03/2025 3:15 PM EDT Office Visit [facility] [address] [place] [address] Shilpa Carlos MD [address] [place] [address] documented as of this encounter Visit Diagnoses Not on filedocumented in this encounter Additional Health Concerns Assessment Noted Time PHQ-9 Depression Total Score: 0 11/16/19 23 12:10 PM EST documented as of this encounter Care Teams Certified Ethical Hacker Relationship Specialty Start Date End Date Shilpa Carlos MD [address] [place] [address] PCP - General Internal Medicine 11/12/18 documented as of this encounter
--- OUTSIDE RECORDS SUMMARY | 2025-02-17 19:03 | XMS_ITS | Encounter Summary ---
Author Organization [employer] Address 75 [facility] [address]t [place] [address] Care Team Providers Care Neurological Surgeon Name Role Phone Shilpa Carlos MD Primary Care Provider [phone] Reason for Visit * Reason Comments Med Refill Encounter Details Date Type Department Care Team (Late Contact Info) Description 01/22/2025 Refill [facility] & PEDS [address] [place], [place] [phone] Lucho Vieira MD [address] [place] [address] Social History Tobacco Use Types Packs/Day Years [...] Office Visit [facility] [address] [place] [address] [phone] 03/03/2025 3:15 PM EDT Office Visit [facility] [address] [place] [address] Shilpa Carlos MD [address] [place] [address] documented as of this encounter Visit Diagnoses Not on filedocumented in this encounter Additional Health Concerns Assessment Noted Time PHQ-9 Depression Total Score: 0 11/16/19 23 12:10 PM EST documented as of this encounter Care Teams Neurological Surgeon Relationship Specialty Start Date End Date Shilpa Carlos MD [address] [place] [address] PCP - General Internal Medicine 11/12/18 documented as of this encounter
--- OUTSIDE RECORDS SUMMARY | 2025-02-17 19:03 | XMS_ITS | Encounter Summary ---
Author Organization [employer] Address [address] [facility] 7t [place] [address] Care Team Providers Care Technical Sales Manager Name Role Phone Shilpa Carlos MD Primary Care Provider [phone] Reason for Visit * Reason Comments Med Refill Encounter Details Date Type Department Care Team (Late Contact Info) Description 01/23/2024 Refill [facility] [address] [place] [phone] Shilpa Carlos MD [address] [place], [place] [phone] Hypercholesterolemia Social History Tobacco Use Types Packs/Day [...] Description 02/19/2025 2:00 PM EDT Office Visit [facility] [address] [place], [place] [phone] 03/03/2025 3:15 PM EDT Office Visit [facility] [address] [place], [place] [phone] Shilpa Carlos MD [address] [place] [address] documented as of this encounter Visit Diagnoses Diagnosis Hypercholesterolemia Pure hypercholesterolemia documented in this encounter Additional Health Concerns Assessment Noted Time PHQ-9 Depression Total Score: 0 11/16/19 23 12:10 PM EST documented as of this encounter Care Teams Technical Sales Manager Relationship Specialty Start Date End Date Shilpa Carlos MD [address] [place] [address] PCP - General Internal Medicine 11/12/18 documented as of this encounter
--- OUTSIDE RECORDS SUMMARY | 2025-02-17 19:03 | XMS_ITS | Encounter Summary ---
Author Organization [employer] Address [address] [facility] [address] [place] [address] Care Team Providers Care Preparation Center Coordinator Name Role Phone Shilpa Carlos MD Primary Care Provider [phone] Reason for Visit * Reason Comments Med Refill Encounter Details Date Type Department Care Team (Late Contact Info) Description 01/10/2024 Refill [facility] [address] [place] [address] Shilpa Carlos MD [address] [place] [address] Social History Tobacco Use Types Packs/Day Years [...] Description 02/19/2025 2:00 PM EDT Office Visit [facility] [address], [place] [phone] 03/03/2025 3:15 PM EDT Office Visit [facility] [address] [place] [address] Shilpa Carlos MD [address] [place] [address] documented as of this encounter Visit Diagnoses Not on filedocumented in this encounter Additional Health Concerns Assessment Noted Time PHQ-9 Depression Total Score: 0 11/16/19 23 12:10 PM EST documented as of this encounter Care Teams Preparation Center Coordinator Relationship Specialty Start Date End Date Shilpa Carlos MD [address] [place] [address] PCP - General Internal Medicine 11/12/18 documented as of this encounter
--- OUTSIDE RECORDS SUMMARY | 2025-02-17 19:03 | XMS_ITS | Encounter Summary ---
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 Name Role Phone Shilpa Carlos MD Primary Care Provider [phone] Reason for Visit * Reason Comments Med Refill Encounter Details Date Type Department Care Team (Late Contact Info) Description 04/18/2024 Refill [facility] [address] [place] [id number] Shilpa Carlos MD [address] [place], [place] [phone] Social History Tobacco Use Types Packs/Day Years [...] 02/19/2025 2:00 PM EDT Office Visit [facility] [address] [place], [place] [phone] 03/03/2025 3:15 PM EDT Office Visit [facility] [address] [place], [place] [phone] Shilpa Carlos MD [address] [place] [address] documented as of this encounter Visit Diagnoses Not on filedocumented in this encounter Additional Health Concerns Assessment Noted Time PHQ-9 Depression Total Score: 0 11/16/19 23 12:10 PM EST documented as of this encounter Care Teams Flat Lock Machine Operator Relationship Specialty Start Date End Date Shilpa Carlos MD [address] [place] [address] PCP - General Internal Medicine 11/12/18 documented as of this encounter
== END 2025-02-17 16:21 | disposition home or self-care (01) ==
LOC: HO.US 16:20
PROVIDERS: PCP Internal Medicine; Visit Provider Family Medicine
DX: R60.0 Localized edema (principal)
CPT/HCPCS: 93971

== ENCOUNTER → 2025-02-17 16:47 | Outpatient (BNV) | payer MEDICAID, SELFPAY | PROVIDERS: PCP Internal Medicine; Visit Provider Nuclear Medicine | DX: R22.41 Localized swelling, mass and lump, right lower limb (principal) | CPT/HCPCS: 93971 ==